=== PATIENT | female | born 1995 | race American Indian/Alaskan Native ===

== ENCOUNTER 2019-02-08 11:45 | Emergency (ER) | payer OTHER ==
[2019-02-08 12:01] VITALS: BP 133/78
--- NOTE | 2019-02-08 12:04 | Emergency Department Report ---
Blank Doc - Documentation Documentation: Patient reports that she just found out she is and she had dental pro cedure a couple days ago and was conscious sedation and prescribed norco which she took. She is concerned about baby and wants to be check. She said dentist told her to come to ED. Some nausea but no vaginal bleed or abdominal pain O: alert and oriented x 3 ABD: soft NTTP A/P i Urinalysis, UA
[2019-02-08 13:15] LABS: HCG Qualitative,Urine Positive (Negative)
[2019-02-08 13:16] LABS: Bilirubin,Urine NEG (Negative); Blood,Urine NEG (Negative); Color,Urine Yellow (Yellow); Mucus,Urine 1+ /HPF; Protein,Urine <15 mg/dL mg/dL (Negative); Urobilinogen,Urine < 2.0 mg/dL (<2.0); WBC,Urine < 1.0 /HPF (0.0-6.0)
[2019-02-08] MEDS ORDERED: TRIMOX PO ONE (14:24)
[2019-02-08] MEDS ORDERED: TYLENOL PO ONE (14:24)
--- NOTE | 2019-02-08 14:26 | Emergency Department Report ---
ED Recheck HPI - General Chief Complaint: Medical Clearance Stated Complaint: MED REFILL Time Seen by Provider: 02/08/19 12:03 Source: patient Mode of arrival: Ambulatory Limitations: No Limitations - History of Present Illness Initial Comments: Was sent here from her dentist after having moderate sedation for dental extraction: AND then finding out she is . She also then took lortab for the pain. Patient cannot tell me her last menstrual period. She states has been within the last couple months. She is concerned for the well-being of her fetus. no vag bleed, discharge or pain she does co dental pain she was given on no antibiotics - Related Data Previous Rx's Medication Instructions Recorded Last Taken Type Amoxicillin [Trimox CAP] 500 mg PO BID #20 capsule 02/08/19 Unknown Rx Allergies Allergy/AdvReac Type Severity Reaction Status Date / Time No Known Allergies Allergy Unverified 02/08/19 11:49 ED Review of Systems ROS: Stated complaint: MED REFILL Other details as noted in HPI Comment: All other systems reviewed and negative Constitutional: denies: chills Eyes: denies: as per HPI ENT: as per HPI, dental pain. denies: ear pain Respiratory: denies: cough Cardiovascular: denies: chest pain Endocrine: denies: flushing Gastrointestinal: denies: abdominal pain Genitourinary: as per HPI Musculoskeletal: denies: back pain Skin: denies: rash Neurological: denies: weakness Psychiatric: denies: depression Hematological/Lymphatic: denies: as per HPI ED Past Medical Hx - Past Medical History Previous Medical History?: No - Surgical History Past Surgical History?: Yes Additional Surgical History: C section - Family History Family history: no significant - Social History Smoking Status: Current Every Day Smoker Substance Use Type: Alcohol - Medications Home Medications: Home Medications Medication Instructions Recorded Confirmed Last Taken Type Amoxicillin [Trimox CAP] 500 mg PO BID #20 capsule 02/08/19 Unknown Rx ED Physical Exam - General Limitations: No Limitations General appearance: alert - Head Head exam: Present: atraumatic, normocephalic - Eye Eye exam: Present: normal appearance, PERRL - ENT ENT exam: Present: normal exam - Expanded ENT Exam Expanded Mouth exam: Absent: drooling, trismus, muffled voice, tongue normal, tongue elevation Teeth exam: Absent: dental caries 1 - Other (extracted tooth) - Neck Neck exam: Present: normal inspection ED Course Vital Signs 02/08/19 02/08/19 12:00 14:35 Temperature 98.5 F Pulse Rate 78 Respiratory 18 18 Rate Blood Pressure 133/78 O2 Sat by Pulse 100 Oximetry ED Recheck MDM - Core Measures Measure Exclusions: not indicated - Medical Decision Making no abscess no ludwigs no trismus sp extraction of tooth per dmd urine preg pos pt does not have obgyn long discussion with pt that we have no way of telling at this early time if the mod sedation and lortab injured her fetus. I explained that even if fetus was in some way not well there was no way to say it was caused by either of these issues. She will be dc home with follow up and referral to obgyn Lab Results 02/08/19 Range/Units 12:36 Urine Color Yellow (Yellow) Urine Turbidity Clear (Clear) Urine pH 6.0 (5.0-7.0) Ur Specific [place] 1.014 (1.003-1.030) Urine Protein <15 mg/dl (Negative) mg/dL Urine Glucose (UA) Neg (Negative) mg/dL Urine Ketones Neg (Negative) mg/dL Urine Blood Neg (Negative) Urine Nitrite Neg (Negative) Ur Reducing Substances Not Reportable Urine Bilirubin Neg (Negative) Urine Ictotest Not Reportable Urine Urobilinogen < 2.0 (<2.0) mg/dL Ur Leukocyte Esterase Neg (Negative) Urine WBC (Auto) < 1.0 (0.0-6.0) /HPF Urine RBC (Auto) 2.0 (0.0-6.0) /HPF U Epithel Cells (Auto) 1.0 (0-13.0) /HPF Urine Mucus 1+ /HPF Urine HCG, Qual Positive A (Negative) Vital Signs 02/08/19 02/08/19 12:00 14:35 Temperature 98.5 F Pulse Rate 78 Respiratory 18 18 Rate Blood Pressure 133/78 O2 Sat by Pulse 100 Oximetry Critical care attestation.: If time is entered above; I have spent that time in minutes in the direct care of this critically ill patient, excluding procedure time. ED Disposition Clinical Impression: Pain, dental, Disposition: TO HOME OR SELFCARE Is pt being admited?: No Does the pt Need Aspirin: No Condition: Stable Instructions: (ED) Additional Instructions: MEDS ORDERED FOLLOW UP WITH OB WE DISCUSSED DIET TOLERATED TYLENOL FOR PAIN ACTIVITY TOLERATED FOLLOW UP WITH DENTIST TO BE SURE TOOTH IS HEALING Prescriptions: Amoxicillin [Trimox CAP] 500 mg PO BID #20 capsule Referrals: [facility] TONNY [Primary Care Provider] - 3-5 Days HUSSEIN ERAZO CNM [Staff Physician] - 3-5 Days LEONCIO CANALES MD [Staff Physician] - 3-5 Days Time of Disposition: 14:24
== END 2019-02-08 14:40 | disposition home or self-care (01) ==
LOC: ED 11:45
DX: O26.899 Other specified pregnancy related conditions, unspecified trimester (principal); K08.89 Other specified disorders of teeth and supporting structures; Z3A.00 Weeks of gestation of pregnancy not specified
CPT/HCPCS: 81001; 81025